=== PATIENT | male | born 1960 | race Native Hawaiian/Other Pacific Islander ===

== ENCOUNTER 2019-02-04 17:28 | Inpatient (IN) | payer OTHER ==
[~2019-02-04] VITALS: Ht 162.6 cm; Wt 68.5 kg
[2019-02-04 23:42] VITALS: BP 190/82
[2019-02-05] VITALS (8 sets, daily range): BP systolic 143–199; BP diastolic 71–98
[2019-02-05] MEDS ORDERED: ONDANSETRON HCL/PF 4 MG/2 ML VIAL IVP PRN
[2019-02-05] MEDS ORDERED: ACETAMINOPHEN 325 MG TABLET PO PRN
[2019-02-05] MEDS ORDERED: MAG HYDROX/AL HYDROX/SIMETH 30 ML UDC PO PRN
[2019-02-05] MEDS ORDERED: HYDROCODONE/APAP 5/325MG 1 EACH TABLET PO PRN
[2019-02-05] MEDS ORDERED: Z GUARD REMEDY 2 OZ OINT TP PRN
[2019-02-05] MEDS ORDERED: ZOLPIDEM TARTRATE 5 MG TABLET PO PRN
[2019-02-05] MEDS ORDERED: MAGNESIUM HYDROXIDE 30 ML UDC PO PRN
[2019-02-05] MEDS ORDERED: hydrALAZINE HCL 50 MG TABLET PO STA (00:21)
[2019-02-05] MEDS: DOXAZOSIN MESYLATE (1 MG) 1 MG TABLET PO SCH ×2 (01:17→21:18)
--- NOTE | 2019-02-05 02:41 | NUR ---
TELE-1/SERVICE CAR OPERATOR STARTED 1 UNIT PRBC. WILL CONTINUE TO MONITOR.
[2019-02-05] MEDS: hydrALAZINE HCL 25 MG TABLET PO SCH ×3 (05:17→21:19)
--- NOTE | 2019-02-05 05:23 | NUR ---
TELE-1/TAMALE MACHINE FEEDER 1 UNIT PRBC COMPLETE. PT TOLERATED WELL. WILL CONTINUE TO MONITOR.
--- NOTE | 2019-02-05 07:00 | NUR ---
RN NOTES RECEIVED PT ON BED, A/Ox4, ON RA ,RESPIRATION EVEN AND UNLABORED, ON TELE SR HR IN 70'S , NO DISTRESS NOTED , R UPPER ARM HD CATH SITE, AND R AC IV G 20 SITE CLEAN, DRY AND INTACT, SR UP X3, CALL LIGHT WITHIN EASY REACH, BED LOCKED AND IN LOWEST POSITION, CONTINUE TO MONITOR.
[2019-02-05] MEDS ORDERED: FOLI0.8T2 PO (07:57)
[2019-02-05] MEDS ORDERED: CALC0.253 PO (07:57)
[2019-02-05] MEDS ORDERED: DOCU100C36 PO (07:57)
[2019-02-05] MEDS ORDERED: LABE300T2 PO (07:57)
[2019-02-05] MEDS ORDERED: TRAZ-213 PO (07:57)
[2019-02-05] MEDS ORDERED: FINA5TAB11 PO (07:57)
[2019-02-05] MEDS ORDERED: ASPI-1169 PO (07:57)
[2019-02-05] MEDS ORDERED: ATOR10TA PO (07:57)
[2019-02-05] MEDS ORDERED: HYDR100T27 PO (07:57)
[2019-02-05] MEDS ORDERED: AMLO5TAB9 PO (07:57)
[2019-02-05] MEDS ORDERED: DOXA8TAB79 PO (07:57)
[2019-02-05 08:00] LABS: BASOPHILS # (AUTO) 0.1 /CMM (0.0-0.2); EOSINOPHILS % (AUTO) 10.7 % (0.0-6.0); HEMATOCRIT 28 % (39-51); HEMOGLOBIN 9.4 g/dL (13.5-17.5); LYMPHOCYTES # (AUTO) 1.3 /CMM (0.8-4.8); LYMPHOCYTES % (AUTO) 17.2 % (20.0-44.0); MEAN CORPUSCULAR HGB CONC 33 g/dl (31.0-36.0); MEAN CORPUSCULAR VOLUME 93 fL (80-96); MONOCYTES # (AUTO) 0.8 /CMM (0.1-1.30); NEUTROPHILS # (AUTO) 4.6 /CMM (1.8-8.9); NEUTROPHILS % (AUTO) 60.1 % (43.0-81.0); PLATELET COUNT (AUTO) 323 /CMM (150-450); RED BLOOD CELL COUNT(AUTO) 3.05 MIL/uL (4.5-6.0); WHITE BLOOD COUNT (AUTO) 7.7 K/uL (4.3-11.0)
[2019-02-05 08:07] LABS: CALCIUM, SERUM 9.4 mg/dL (8.5-10.1); CREATININE 5.6 mg/dL (0.6-1.3); MAGNESIUM 2.3 mg/dL (1.8-2.4); PHOSPHORUS 5.1 mg/dL (2.5-4.9); POTASSIUM 3.5 mmol/L (3.5-5.1)
[2019-02-05] MEDS: PANTOPRAZOLE 40 MG TABLET.DR PO SCH (08:17)
[2019-02-05] MEDS: LABETALOL HCL (100MG) 100 MG TABLET PO SCH ×3 (08:18→16:37)
[2019-02-05] MEDS ORDERED: DEXTROSE 50%-WATER 50 ML DISP.SYRIN IV PRN (12:00)
[2019-02-05] MEDS: INSULIN REGULAR, HUMAN 100 UNIT/ML 3 ML VIAL SQ PRN ×2 (12:07→21:49)
[2019-02-05] MEDS: BLOOD SUGAR DIAGNOSTIC 1 EACH STRIP IN SCH ×3 (12:09→21:42)
[2019-02-05] MEDS ORDERED: EPOETIN ALFA (10,000 UNIT) 10,000 UNIT/ML VIAL IV ONE (12:30)
--- NOTE | 2019-02-05 17:00 | NUR ---
RN NOTES IV TECHNICIAN NOTIFIED REGARDING HIGH BLOOD PRESSURE 198/98, NEW ORDER RECEIVED, CONTINUE TO MONITOR
[2019-02-05] MEDS ORDERED: CLONIDINE HCL 0.1 MG TABLET PO STA (17:44)
--- NOTE | 2019-02-05 18:30 | NUR ---
RN NOTES PT RECEIVING HD AT THIS TIME, NO DISTRESS NOTED, WILL ENDOSE TO [facility] SHIFT NURSE FOR CONTINUITY OF CARE.
--- NOTE | 2019-02-05 19:53 | NUR ---
RN MS INITIAL NOTES RECEIVED PT ON BED, A/Ox4, ON RA ,RESPIRATION EVEN AND UNLABORED , NO DISTRESS NOTED , R UPPER ARM HD CATH SITE, BEING DIALYZED, 2000 O/P TAKEN OUT WITH R AC IV G 20 SITE CLEAN, DRY AND INTACT, SR UP X3, CALL LIGHT WITHIN EASY REACH, BED LOCKED AND IN LOWEST POSITION, CONTINUE TO MONITOR.
[2019-02-05] MEDS: CLONIDINE HCL 0.1 MG TABLET PO PRN (21:18)
[2019-02-06] VITALS: BP 158/94
[2019-02-06 04:00] VITALS: BP 170/95
[2019-02-06] MEDS: hydrALAZINE HCL 25 MG TABLET PO SCH ×2 (04:34→12:20)
[2019-02-06] MEDS: CLONIDINE HCL 0.1 MG TABLET PO PRN (05:35)
--- NOTE | 2019-02-06 06:10 | NUR ---
RN MS CLOSING NOTES ENDORSED PT ASLEEP, A/Ox4, ON RA ,RESPIRATION EVEN AND UNLABORED , NO DISTRESS NOTED , R UPPER ARM HD CATH SITE, S/P HD, 2000 O/P TAKEN OUT, BLOOD PRESSURE ELEVATED THROUGH SHIFT, PRN CLONODINE 0.1 MG GIVEN ORDERED, WILL ENDORSE TO AM RN TO F/U WITH MD. WITH R AC IV G 20 SITE CLEAN, DRY AND INTACT, SR UP X3, CALL LIGHT WITHIN EASY REACH, BED LOCKED AND IN LOWEST POSITION, CONTINUE TO MONITOR.
[2019-02-06 06:27] VITALS: BP 188/87
--- NOTE | 2019-02-06 07:00 | NUR ---
RN NOTES RECEIVED PT ON BED, A/Ox4, ON RA , RESPIRATION EVEN AND UNLABORED, NO DISTRESS NOTED, R UPPER CHEST HD CATH AND R AC IV SITES CLEAN, DRY AND INTACT, SR UP x3, CALL LIGHT WITHIN EASY REACH, BED LOCKED AND IN LOWEST POSITION, CONTINUE TO MONITOR .
[2019-02-06 07:33] LABS: BASOPHILS # (AUTO) 0.1 /CMM (0.0-0.2); BASOPHILS % (AUTO) 1.4 % (0.0-2.0); EOSINOPHILS % (AUTO) 10.5 % (0.0-6.0); HEMATOCRIT 27 % (39-51); LYMPHOCYTES # (AUTO) 1.2 /CMM (0.8-4.8); LYMPHOCYTES % (AUTO) 16.8 % (20.0-44.0); MEAN CORPUSCULAR HGB CONC 34 g/dl (31.0-36.0); MEAN CORPUSCULAR VOLUME 92 fL (80-96); MONOCYTES % (AUTO) 14.8 % (2.0-12.0); NEUTROPHILS % (AUTO) 56.5 % (43.0-81.0); PLATELET COUNT (AUTO) 299 /CMM (150-450); RED BLOOD CELL COUNT(AUTO) 2.87 MIL/uL (4.5-6.0)
[2019-02-06 07:45] LABS: ALBUMIN 2.6 g/dL (3.4-5.0); BILIRUBIN,TOTAL 0.3 mg/dL (0.2-1.0); CALCIUM, SERUM 8.7 mg/dL (8.5-10.1); CREATININE 4.7 mg/dL (0.6-1.3); PHOSPHORUS 4.6 mg/dL (2.5-4.9); POTASSIUM 3.6 mmol/L (3.5-5.1); TOTAL PROTEIN, SERUM 6.2 g/dL (6.4-8.2)
[2019-02-06 08:00] VITALS: BP 193/89
[2019-02-06] MEDS: BLOOD SUGAR DIAGNOSTIC 1 EACH STRIP IN SCH ×2 (08:30→12:20)
[2019-02-06] MEDS: PANTOPRAZOLE 40 MG TABLET.DR PO SCH (08:30)
[2019-02-06] MEDS: LABETALOL HCL (100MG) 100 MG TABLET PO SCH ×2 (08:32→12:19)
--- NOTE | 2019-02-06 09:00 | NUR ---
RN NOTES BP =198/98 ANA RN UNIT MANAGER NOTIFIED.
[2019-02-06] MEDS ORDERED: ISOSORBIDE DINITRATE (20MG) 20 MG TABLET PO SCH (10:30)
[2019-02-06] MEDS ORDERED: NIFEdipine XL (30MG) 30 MG TAB PO SCH (10:30)
[2019-02-06 12:00] VITALS: BP 155/81
[2019-02-06 12:20] VITALS: BP 155/81
[2019-02-06] MEDS ORDERED: ISOS40TA12 PO (13:37)
[2019-02-06] MEDS ORDERED: NIFE90TA2 PO (13:37)
--- NOTE | 2019-02-06 14:50 | NUR ---
RN NOTES DISCHARGE INSTRUCTION GIVEN TO PT , VERBALIZES UNDERSTANDING, IV SITE REMOVE, NO SKIN ISSUES NOTED, PT STATED HAS NO RIDE HOME, NURSING TRANSITIONS MANAGER RN NOTIFIED, TAXI VOUCHER PROVIDED, PT LEFT THE HOSPITAL TO HOME VIA TAXI , IN STABLE CONDITION .
[2019-02-06] MEDS ORDERED: EPOETIN ALFA (20,000 UNIT) 20,000 UNIT/ML VIAL SQ SCH (17:00)
== END 2019-02-06 14:50 | disposition home or self-care (01) | DRG 470 ==
LOC: TELE1 23:11 → MEDSG1 02-05 08:43
PROVIDERS: ADMIT Nurse Practitioner Acute Care; ATTEND Nurse Practitioner Acute Care
PROC: 5A1D70Z Performance of Urinary Filtration, Intermittent, Less than 6 Hours Per Day (ICD-10-PCS; principal; 2019-02-05)
PROC: 30233N1 Transfusion of Nonautologous Red Blood Cells into Peripheral Vein, Percutaneous Approach (ICD-10-PCS; principal; 2019-02-05)
DX: I12.0 Hypertensive chronic kidney disease with stage 5 chronic kidney disease or end stage renal disease (principal); E11.22 Type 2 diabetes mellitus with diabetic chronic kidney disease; N18.6 End stage renal disease; D63.8 Anemia in other chronic diseases classified elsewhere; Z99.2 Dependence on renal dialysis; Z86.73 Personal history of transient ischemic attack (TIA), and cerebral infarction without residual deficits; E83.39 Other disorders of phosphorus metabolism; Z79.84 Long term (current) use of oral hypoglycemic drugs
CPT/HCPCS: 36415; 80048-TC; 80053-TC; 80061-TC; 82962-TC; 83735-TC; 84100-TC; 85025-TC; 86706; 86850-TC; 86921-TC; 87081-TC; 87340; 90935-TC; 93307-TC; G0378; J0885; J1815; J7050; P9016-BL

== ENCOUNTER 2019-07-16 16:22 | Emergency (ER) | payer MEDICARE, OTHER ==
[~2019-07-16] VITALS: Ht 162.6 cm; Wt 69.9 kg
[2019-07-16 16:22] VITALS: BP 195/76
[~2019-07-16 16:22] MED LIST: AMLO5TAB9 PO; ASPI-1169 PO; ATOR10TA PO; CALC0.253 PO; DOCU100C36 PO; DOXA8TAB79 PO; FINA5TAB11 PO; FOLI0.8T2 PO; HYDR100T27 PO; ISOS40TA12 PO; LABE300T2 PO; NIFE90TA2 PO; TRAZ-252 PO
[2019-07-16] MEDS ORDERED: ACETAMINOPHEN 650 MG/20.3 ML UDC PO ONE (17:30)
[2019-07-16] MEDS ORDERED: ACETAMINOPHEN 325 MG TABLET ONE (17:47)
== END 2019-07-16 17:55 | disposition home or self-care (01) ==
LOC: ER 16:24
DX: J02.9 Acute pharyngitis, unspecified (principal); E11.22 Type 2 diabetes mellitus with diabetic chronic kidney disease; I12.0 Hypertensive chronic kidney disease with stage 5 chronic kidney disease or end stage renal disease; N18.6 End stage renal disease; Z99.2 Dependence on renal dialysis; Z79.899 Other long term (current) drug therapy; Z79.82 Long term (current) use of aspirin